=== PATIENT | female | born 1990 | race African-American/Black ===

== ENCOUNTER 2017-12-16 06:44 | Inpatient (IN) ==
[2017-12-16] MEDS ORDERED: MEPERIDINE 50 MG/1 ML VIAL IV PRN (06:59)
[2017-12-16] MEDS ORDERED: ONDANSETRON 4 MG/2 ML VIAL IV PRN ×2 (06:59→07:35)
[2017-12-16] MEDS ORDERED: LACTATED RINGERS 1,000 ML IV SCH (07:00)
[2017-12-16] MEDS ORDERED: OXYTOCIN/LR 20 UNIT/1,000 ML BAG IV ONE ×3 (07:10→09:50)
[2017-12-16] MEDS ORDERED: LIDOCAINE 1% 50 ML VIAL ONE (07:13)
[2017-12-16] MEDS ORDERED: miSOPROStol 200 MCG TABLET ONE (07:13)
[2017-12-16 07:15] LABS: Basophils % 0.2 % (0.0-0.8); Eosinophils # 0.1 10*3/uL (0.0-0.87); Eosinophils % 0.8 % (0.00-10.9); Hematocrit 32.3 VOL% (35.7-47.0); Hemoglobin 11.3 GM/DL (12.0-16.0); Immature Granulocytes % 0.5 %; Immature Granulocytes Absolute 0.07 #; Lymphocytes # 3.4 10*3/uL (1.4-4.0); Mean Corpuscular Hemoglobin 29 PG (27-34); Mean Corpuscular Volume 84.1 FL (87-102); Mean Platelet Volume 9.9 FL (9.6-12.0); Monocytes % 7.1 % (1.7-12.7); Neutrophils % 66.4 % (38.7-73.9); Platelet Count 308 T/CUMM (130-400); Red Blood Count 3.84 MC/CUMM (3.8-5.5); Red Cell Distribution Width 14.7 % (9.3-17.3); White Blood Count 13.6 T/CUMM (4-12)
[2017-12-16] MEDS ORDERED: RHO(D) IMMUNE GLOBULIN 300 MCG SYRINGE IM ONE (07:35)
[2017-12-16] MEDS ORDERED: WITCH HAZEL PADS 100/JAR TOP PRN (07:35)
[2017-12-16] MEDS ORDERED: BISACODYL 10 MG SUPP RECTAL PRN (07:35)
[2017-12-16] MEDS ORDERED: oxyCODONE/ACETAMINOPHEN 5-325 MG TABLET PO PRN (07:35)
[2017-12-16] MEDS ORDERED: DIPH/TET/ACEL PERT BOOSTER VACCINE 0.5 ML VIAL IM ONE (07:35)
[2017-12-16] MEDS ORDERED: HYDROCORTISONE 2.5% RECTAL CREAM 30 GM TUBE TOP PRN (07:35)
[2017-12-16] MEDS ORDERED: BENZOCAINE 20%/MENTHOL 0.5% SPRAY 56 GM CAN TOP PRN (07:35)
[2017-12-16] MEDS ORDERED: LANOLIN 50% CREAM 0.3 OZ TUBE TOP PRN (07:35)
[2017-12-16] MEDS ORDERED: MEASLES/MUMPS/RUBELLA VACCINE 0.5 ML VIAL SUBCUT ONE (07:35)
[2017-12-16] MEDS ORDERED: ACETAMINOPHEN 325 MG TABLET PO PRN (07:35)
[2017-12-16 07:45] LABS: Amorphous Crystals,Urine Occasional /HPF (Few); Apearance,Urine Slightly Hazy (Clear); Bacteria,Urine Occasional /HPF (Few); Bilirubin,Urine Negative (Negative); Blood, Urine Moderate mg/dL (Negative); Glucose,Urine (UA) Negative (Negative); Ketones,Urine Negative (Negative); Mucus,Urine Many /LPF (Occasional); Nitrite,Urine Negative (Negative); Protein,Urine 30 MG/DL; RBC,Urine 3 /HPF (0-4); Squamous Epithelial Cell,Urine Occasional /HPF (0-10); Urine Color Yellow (Yellow); Urine Specific Gravity 1.017 (1.001-1.035); Urine Urobilinogen < 2.0 EU/DL (0.2-1.0); WBC,Urine 24 /HPF (0-6)
[2017-12-16] MEDS: IBUPROFEN 800 MG TABLET PO PRN (16:36)
[2017-12-16] MEDS: oxyCODONE/ACETAMINOPHEN 5-325 MG TABLET PO PRN (16:37)
[2017-12-16] MEDS: DOCUSATE SODIUM 100 MG CAPSULE PO SCH ×2 (17:52→21:23)
[2017-12-17 04:47] LABS: Basophils % 0.2 % (0.0-0.8); Eosinophils # 0.1 10*3/uL (0.0-0.87); Eosinophils % 1.1 % (0.00-10.9); Hemoglobin 10.8 GM/DL (12.0-16.0); Immature Granulocytes % 0.5 %; Immature Granulocytes Absolute 0.06 #; Lymphocytes # 3.6 10*3/uL (1.4-4.0); Lymphocytes % 29.3 % (21.3-54.2); Mean Corpuscular HGB Conc 34.8 GM/DL (32-36); Mean Corpuscular Hemoglobin 29 PG (27-34); Mean Platelet Volume 10.1 FL (9.6-12.0); Monocytes # 0.9 10*3/uL (0.11-0.8); Monocytes % 7.1 % (1.7-12.7); Neutrophils # 7.5 10*3/uL (1.4-7.4); Neutrophils % 61.8 % (38.7-73.9); Platelet Count 289 T/CUMM (130-400); Red Blood Count 3.69 MC/CUMM (3.8-5.5); Red Cell Distribution Width 14.4 % (9.3-17.3); White Blood Count 12.2 T/CUMM (4-12)
[2017-12-17] MEDS: DOCUSATE SODIUM 100 MG CAPSULE PO SCH ×2 (09:51→21:49)
[2017-12-17] MEDS: IBUPROFEN 800 MG TABLET PO PRN (17:20)
[2017-12-17] MEDS: oxyCODONE/ACETAMINOPHEN 5-325 MG TABLET PO PRN (17:21)
[2017-12-18 07:36] VITALS: BP 142/90
[2017-12-18] MEDS: DOCUSATE SODIUM 100 MG CAPSULE PO SCH (10:16)
[2017-12-18] MEDS: IBUPROFEN 800 MG TABLET PO PRN (10:46)
[2017-12-18] MEDS: oxyCODONE/ACETAMINOPHEN 5-325 MG TABLET PO PRN (10:47)
== END 2017-12-18 12:10 | disposition home or self-care (01) | DRG 775 ==
LOC: N.LDOUT 06:44 → N.LD 06:45 → N.OB 09:52
PROVIDERS: ADMIT Obstetrics & Gynecology; ATTEND Obstetrics & Gynecology